=== PATIENT | female | born 1980 | race African-American/Black ===

== ENCOUNTER 2016-09-18 10:34 | Emergency (ER) | payer SELFPAY ==
[2016-09-18] MEDS ORDERED: ASPIRIN 81 MG TABLET, CHEWABLE PO ONE (11:29)
--- NOTE | 2016-09-18 11:31 | ER Document Report ---
[id number] Patient TRAVEL OUTSIDE OF THE [place] IN LAST 30 DAYS: No <LUIS ESCALONA - Last Filed: 09/18/16 11:25> <LISBETH VARGAS - Last Filed: 09/26/16 12:22> - General Chief Complaint: Chest Pain Stated Complaint: CHEST PAIN Notes: Patient is complaining of anxiety, "uneasy" feeling that started this morning with associated sharp mid-sternal intermittent chest pain for the past 5 hours. She rates her pain at 2 out of 5 this morning, it increased to 4 out of 5 at work and it is still 3-4 out of 5 now. Movement makes the pain worse. The chest pain is associated with SOB but denies any diaphoresis, nausea, vomiting with the pain. She has had this pain in the past several years ago. She took tylenol this morning which has not helped. She has not had any aspirin today. PMHx significant for HTN but no DM. FMHx significant for CAD, HTN, DM. Smoker but no alcohol or drug use. (LUIS ESCALONA) - Related Data Allergies/Adverse Reactions: No Known Allergies Allergy (Verified 09/18/16 10:53) Past Medical History - Past Medical History Cardiac Medical History: Denies: Hx Coronary Artery Disease, Hx Heart Attack, Hx Hypertension, Hx Pulmonary Embolism, Hx Heart Murmur Pulmonary Medical History: Denies: Hx Asthma, Hx Bronchitis, Hx COPD, Hx Pneumonia, Hx Sleep Apnea, Hx Tuberculosis Neurological Medical History: Denies: Hx Cerebrovascular Accident, Hx Seizures Endocrine Medical History: Denies: Hx Hyperthyroidism, Hx Hypothyroidism Renal/ Medical History: Denies: Hx Kidney Stones, Hx Ovarian Cysts, Hx Pelvic Inflammatory Disease Malignancy Medical History: Denies: Hx Breast Cancer, Hx Cervical Cancer, Hx Ovarian Cancer GI Medical History: Denies: Hx Gastroesophageal Reflux Disease, Hx Hiatal Hernia , Hx Ulcer Musculoskeltal Medical History: Denies Hx Arthritis, Denies Hx Fibromyalgia Psychiatric Medical History: Denies: Hx Bipolar Disorder, Hx Depression, Hx Post Traumatic Stress Disorder , Hx Schizophrenia Traumatic Medical History: Denies: Hx Fractures Infectious Medical History: Denies: Hx HIV Past Surgical History: Reports: Hx Breast Surgery - breast reduction, Hx Section - x3 - Immunizations Hx Diphtheria, Pertussis, Tetanus Vaccination: Yes <LUIS ESCALONA - Last Filed: 09/18/16 11:25> Physical Exam <LUIS ESCALONA - Last Filed: 09/18/16 11:25> <LISBETH VARGAS - Last Filed: 09/26/16 12:22> - Vital signs Vitals: Temp Pulse Resp BP Pulse Ox 98.4 F 90 18 137/92 H 100 09/18/16 10:43 09/18/16 10:43 09/18/16 10:43 09/18/16 10:43 09/18/16 10:43 (LUIS ESCALONA) (LISBETH VARGAS) - Notes Notes: General: well-appearing, non-toxic, no respiratory distress CV: RRR (LUIS ESCALONA) Course <LUIS ESCALONA - Last Filed: 09/18/16 11:25> - Laboratory Result Diagrams: 09/18/16 12:59 09/18/16 12:59 <LISBETH VARGAS - Last Filed: 09/26/16 12:22> - Re-evaluation Re-evalutation: 09/18/16 11:32 Patient seen and examined. EKG done. Given 324 mg PO ASA, ordered labs. (LUIS ESCALONA) - Vital Signs Vital signs: Temp Pulse Resp BP Pulse Ox 97.6 F 82 20 123/72 100 09/18/16 14:01 09/18/16 14:01 09/18/16 14:01 09/18/16 14:01 09/18/16 14:01 (LUIS ESCALONA) (LISBETH VARGAS) - Laboratory Laboratory results interpreted by me: 09/18/16 09/18/16 09/18/16 12:20 12:59 12:59 RDW 15.0 H Chloride 108 H Est GFR (Non-Af Amer) 59 L Glucose 67 L Ur Leukocyte Esterase TRACE H Urine Ascorbic Acid 40 H (LISBETH VARGAS) Doctor's Discharge <LUIS ESCALONA - Last Filed: 09/18/16 11:25> <LISBETH VARGAS - Last Filed: 09/26/16 12:22> - Discharge Clinical Impression: Chest pain of uncertain etiology Condition: Stable Disposition: HOME, SELF-CARE Instructions: Chest Pain of Unclear Cause ([facility]) Additional Instructions: rest, continue current meds, start one aspirin/day, return if worse Referrals: GORGE LUGO MD [ACTIVE STAFF] - Follow up as needed
--- NOTE | 2016-09-18 12:20 | EKG REPORT ---
SEVERITY:- NORMAL ECG - SINUS RHYTHM : Confirmed by: Carlyn Bender 18-Sep-2016 12:20:08
[2016-09-18 12:57] LABS: APPEARANCE,URINE SLIGHTLY-CLOUDY; BILIRUBIN,URINE NEGATIVE (NEGATIVE); GLUCOSE, URINE NEGATIVE (NEGATIVE); KETONES,URINE NEGATIVE (NEGATIVE); LEUKOCYTE ESTERASE,URINE TRACE (NEGATIVE); NITRITE,URINE NEGATIVE (NEGATIVE); PROTEIN,URINE NEGATIVE (NEGATIVE); URINE SPECIFIC GRAVITY 1.032; UROBILINOGEN,URINE NEGATIVE mg/dL (<2.0)
--- NOTE | 2016-09-18 13:00 | ER Document Report ---
[id number] Time seen by provider: 12:56 Mode of Arrival: Ambulatory Information source: Patient TRAVEL OUTSIDE OF THE [place] IN LAST 30 DAYS: No - HPI Patient complains to provider of: Chest pain - pt states she had a panic attack this am and had a brief episode of CP. She denies SOB, diaphoresis, N,V. She feels much better now. - Related Data Allergies/Adverse Reactions: No Known Allergies Allergy (Verified 09/18/16 10:53) Past Medical History - General Information source: Patient - Social History Smoking Status: Current Every Day Smoker Cigarette use (# per day): Yes Chew tobacco use (# tins/day): No Smoking Education Provided: Yes Family History: DM, Hyperlipidemia, Hypertension - Past Medical History Cardiac Medical History: Denies: Hx Coronary Artery Disease, Hx Heart Attack, Hx Hypertension, Hx Pulmonary Embolism, Hx Heart Murmur Pulmonary Medical History: Denies: Hx Asthma, Hx Bronchitis, Hx COPD, Hx Pneumonia, Hx Sleep Apnea, Hx Tuberculosis Neurological Medical History: Denies: Hx Cerebrovascular Accident, Hx Seizures Endocrine Medical History: Denies: Hx Hyperthyroidism, Hx Hypothyroidism Renal/ Medical History: Denies: Hx Kidney Stones, Hx Ovarian Cysts, Hx Pelvic Inflammatory Disease Malignancy Medical History: Denies: Hx Breast Cancer, Hx Cervical Cancer, Hx Ovarian Cancer GI Medical History: Denies: Hx Gastroesophageal Reflux Disease, Hx Hiatal Hernia , Hx Ulcer Musculoskeltal Medical History: Denies Hx Arthritis, Denies Hx Fibromyalgia Psychiatric Medical History: Denies: Hx Bipolar Disorder, Hx Depression, Hx Post Traumatic Stress Disorder , Hx Schizophrenia Traumatic Medical History: Denies: Hx Fractures Infectious Medical History: Denies: Hx HIV Past Surgical History: Reports: Hx Breast Surgery - breast reduction, Hx Section - x3 - Immunizations Hx Diphtheria, Pertussis, Tetanus Vaccination: Yes Review of Systems - Review of Systems Constitutional: No symptoms reported EENT: No symptoms reported Cardiovascular: See HPI, Chest pain Respiratory: No symptoms reported Gastrointestinal: No symptoms reported Musculoskeletal: No symptoms reported Neurological/Psychological: No symptoms reported Physical Exam - Vital signs Vitals: Temp Pulse Resp BP Pulse Ox 98.4 F 90 18 137/92 H 100 09/18/16 10:43 09/18/16 10:43 09/18/16 10:43 09/18/16 10:43 09/18/16 10:43 - General General appearance: Appears well, Other - she is obese In distress: None - HEENT Pharynx: Normal Neck: Normal - Respiratory Respiratory status: No respiratory distress Chest status: Nontender Breath sounds: Normal - Cardiovascular Rhythm: Regular Heart sounds: Normal auscultation - Abdominal Inspection: Normal Distension: No distension Bowel sounds: Normal Tenderness: Nontender Organomegaly: No organomegaly - Extremities General upper extremity: Normal inspection General lower extremity: Normal inspection - Neurological Neuro grossly intact: Yes Cognition: Normal Orientation: AAOx4 Course - Vital Signs Vital signs: Temp Pulse Resp BP Pulse Ox 97.6 F 82 20 123/72 100 09/18/16 14:01 09/18/16 14:01 09/18/16 14:01 09/18/16 14:01 09/18/16 14:01 - Laboratory Result Diagrams: 09/18/16 12:59 09/18/16 12:59 Laboratory results interpreted by me: 09/18/16 09/18/16 09/18/16 12:20 12:59 12:59 RDW 15.0 H Chloride 108 H Est GFR (Non-Af Amer) 59 L Glucose 67 L Ur Leukocyte Esterase TRACE H Urine Ascorbic Acid 40 H - EKG Interpretation by Me EKG shows normal: Sinus rhythm Rate: Normal Rhythm: NSR - nsr without acute change Discharge - Discharge Clinical Impression: Chest pain of uncertain etiology Condition: Stable Disposition: HOME, SELF-CARE Instructions: Chest Pain of Unclear Cause ([facility]) Additional Instructions: rest, continue current meds, start one aspirin/day, return if worse Referrals: GORGE LUGO MD [ACTIVE STAFF] - Follow up as needed
[2016-09-18 13:10] LABS: ABSOLUTE BASOPHILS # (AUTO) 0.1 10^3/uL (0.0-0.2); ABSOLUTE EOSINOPHILS # (AUTO) 0.2 10^3/uL (0.0-0.6); ABSOLUTE LYMPHOCYTES (AUTO) 2.2 10^3/uL (0.5-4.7); ABSOLUTE MONOCYTES (AUTO) 0.5 10^3/uL (0.1-1.4); BASOPHILS % (AUTO) 0.6 % (0-2); HEMATOCRIT 36.9 % (36.0-47.0); HEMOGLOBIN 12.4 g/dL (12.0-15.5); HGB HCT DIFFERENCE 0.3; LYMPHOCYTES % (AUTO) 22.2 % (13-45); MEAN CORPUSCULAR HEMOGLOBIN 31.1 pg (27.0-33.4); MEAN CORPUSCULAR HGB CONC 33.8 g/dL (32.0-36.0); MEAN CORPUSCULAR VOLUME 92 fl (80-97); MONOCYTES % (AUTO) 4.6 % (3-13); SEGMENTED NEUTROPHILS % (AUTO) 70.6 % (42-78); WHITE BLOOD COUNT 9.9 10^3/uL (4.0-10.5)
[2016-09-18 13:12] LABS: URINE BARBITURATES SCREEN NEGATIVE; URINE METHADONE SCREEN NEGATIVE; URINE PHENCYCLIDINE SCREEN NEGATIVE
[2016-09-18 13:26] LABS: ALANINE AMINOTRANSFERASE 39 U/L (9-52); ALKALINE PHOSPHATASE 80 U/L (38-126); ANION GAP 13 (5-19); ASPARTATE AMINO TRANSFERASE 20 U/L (14-36); BILIRUBIN,TOTAL 0.3 mg/dL (0.2-1.3); BLOOD UREA NITROGEN 19 mg/dL (7-20); CALCIUM 9.3 mg/dL (8.4-10.2); CARBON DIOXIDE 23 mmol/L (22-30); CHLORIDE 108 mmol/L (98-107); CREATINE KINASE 134 U/L (30-135); CREATININE RESULT 1.06 mg/dL (0.52-1.25); GLUCOSE 67 mg/dL (75-110); POTASSIUM 3.7 mmol/L (3.6-5.0); SODIUM 144.1 mmol/L (137-145)
[2016-09-18 13:38] LABS: CREATINE KINASE MB 0.61 ng/mL (<4.55)
[2016-09-18 13:40] LABS: TROPONIN I < 0.012 ng/mL
[2016-09-18 14:02] VITALS: BP 123/72
== END 2016-09-18 14:15 | disposition home or self-care (01) ==
LOC: ER 10:34
DX: R07.9 Chest pain, unspecified (principal); F17.210 Nicotine dependence, cigarettes, uncomplicated
CPT/HCPCS: 93005; 99285; 36415; 82553; 82550; 85025; 81025; 80053; 81001; 84484; 71010; 93010; G0479; 80307

== ENCOUNTER 2017-03-22 10:02 | Emergency (ER) | payer SELFPAY ==
[2017-03-22] MEDS ORDERED: OXYCODONE-ACETAMINOPHEN 5-325 MG TABLET PO ONE (10:56)
[2017-03-22] MEDS ORDERED: BUPIVACAINE HCL 0.5 % INJ/PF 30 ML SDV INJ ONE (11:01)
--- NOTE | 2017-03-22 11:03 | ER Document Report ---
HPI - HPI Patient complains to provider of: dequan injury Onset: Just prior to arrival Onset/Duration: Sudden Quality of pain: Sharp Pain Level: 5 Context: Patient states that she tripped and fell injuring her left third finger. Patient injured her fingernail. Associated Symptoms: Other - Third finger injury Exacerbated by: Movement Relieved by: Denies Similar symptoms previously: No Recently seen / treated by doctor: No - ROS ROS below otherwise negative: Yes Systems Reviewed and Negative: Yes All other systems reviewed and negative - CONSTITUTIONAL Constitutional: DENIES: Fever - MUSCULOSKELETAL Musculoskeletal: REPORTS: Extremity pain - DERM Skin Problems: Laceration Past Medical History - General Information source: Patient - Social History Smoking Status: Current Every Day Smoker Frequency of alcohol use: None Drug Abuse: None Occupation: visual manager Lives with: Family Family History: DM, Hyperlipidemia, Hypertension - Medical History Medical History: Negative - Past Medical History Cardiac Medical History: Denies: Hx Coronary Artery Disease, Hx Heart Attack, Hx Hypertension, Hx Pulmonary Embolism, Hx Heart Murmur Pulmonary Medical History: Denies: Hx Asthma, Hx Bronchitis, Hx COPD, Hx Pneumonia, Hx Sleep Apnea, Hx Tuberculosis Neurological Medical History: Denies: Hx Cerebrovascular Accident, Hx Seizures Endocrine Medical History: Denies: Hx Hyperthyroidism, Hx Hypothyroidism Renal/ Medical History: Denies: Hx Kidney Stones, Hx Ovarian Cysts, Hx Pelvic Inflammatory Disease Malignancy Medical History: Denies: Hx Breast Cancer, Hx Cervical Cancer, Hx Ovarian Cancer GI Medical History: Denies: Hx Gastroesophageal Reflux Disease, Hx Hiatal Hernia , Hx Ulcer Musculoskeltal Medical History: Denies Hx Arthritis, Denies Hx Fibromyalgia Psychiatric Medical History: Denies: Hx Bipolar Disorder, Hx Depression, Hx Post Traumatic Stress Disorder , Hx Schizophrenia Traumatic Medical History: Denies: Hx Fractures Infectious Medical History: Denies: Hx HIV Past Surgical History: Reports: Hx Breast Surgery - breast reduction, Hx Section - x3 - Immunizations Hx Diphtheria, Pertussis, Tetanus Vaccination: Yes Vertical Provider Document - CONSTITUTIONAL Agree With Documented VS: Yes Exam Limitations: No Limitations General Appearance: WD/WN, No Apparent Distress - INFECTION CONTROL TRAVEL OUTSIDE OF THE [place] IN LAST 30 DAYS: No - HEENT HEENT: Atraumatic, Normocephalic - NECK Neck: Normal Inspection - RESPIRATORY Respiratory: No Respiratory Distress O2 Sat by Pulse Oximetry: 100 - CARDIOVASCULAR Pulses: Normal: Radial - MUSCULOSKELETAL/EXTREMETIES Musculoskeletal/Extremeties: MAEW, Tender - Generalized the left hand tenderness. Patient with laceration to distal tip of left third finger involving nail plate. No obvious tendon deficit, No Edema. negative: Eccymosis - NEURO Level of Consciousness: Awake, Alert, Appropriate Motor/Sensory: No Motor Deficit - DERM Integumentary: Warm, Dry, Laceration - left 3rd finger Course - Vital Signs Vital signs: Temp Pulse Resp BP Pulse Ox 98.0 F 20 131/84 H 100 03/22/17 10:20 03/22/17 10:20 03/22/17 10:20 03/22/17 10:20 - Diagnostic Test Radiology reviewed: Image reviewed, Reports reviewed Procedures - Immobilization Left 3rd digit Pre-Proc Neuro Vasc Exam: Normal Immobilizer type: Finger splint (Static) Performed by: PCT Post-Proc Neuro Vasc Exam: Normal Alignment checked and good: Yes - Laceration/Wound Repair Left 3rd digit Wound length (cm): 2 Wound's Depth, Shape: Irregular Laceration pre-procedure: Other - chlorhexadine Anesthetic type: 0.5% Bupivacaine Wound explored: Clean Wound Repaired With: Sutures Suture Size/Type: 5:0, Nylon Number of Sutures: 5 Layer Closure?: No Post-procedure wound care: Sterile dressing applied, Splint applied Post-procedure NV exam normal: Yes Complications: No Discharge - Discharge Clinical Impression: Finger laceration Qualifiers: Encounter type: initial encounter Finger: middle finger Damage to nail status: with damage Foreign body presence: without foreign body Laterality: left Qualified Code(s): S61.313A - Laceration without foreign body of left middle finger with damage to nail, initial encounter Condition: Stable Disposition: HOME, SELF-CARE Instructions: Prophylactic Antibiotic ([facility]), Laceration Care ([facility]), Oral Narcotic Medication ([facility]), Temporary Splint ([facility]) Additional Instructions: Return immediately for any new or worsening symptoms Followup with your primary care provider, call tomorrow to make a followup appointment Suture removal in 8 days Prescriptions: Cephalexin Monohydrate [Keflex 500 mg Capsule] 500 mg PO Q6H 5 Days Hydrocodone/Acetaminophen [[place] 5-325 Tablet] 1 each PO Q4 PRN #15 tablet PRN Reason: Referrals: SARAI BASS DO [ACTIVE STAFF] - Follow up as needed
--- NOTE | 2017-03-22 11:35 | RADIOLOGY REPORT (SQ) ---
EXAM DESCRIPTION: HAND LEFT 3 VIEWS COMPLETED DATE/TIME: 03/22/2017 11:17 am REASON FOR STUDY: fall, left hand pain, left 3 finger injury COMPARISON: None. EXAM PARAMETERS: NUMBER OF VIEWS: Three views. TECHNIQUE: AP, lateral and oblique radiographic images acquired of the left hand. LIMITATIONS: None. FINDINGS: MINERALIZATION: Normal. BONES: No acute fracture or dislocation. No worrisome bone lesions. JOINTS: No effusions. SOFT TISSUES: No soft tissue swelling. No foreign body. OTHER: No other significant finding. IMPRESSION: NEGATIVE STUDY OF THE LEFT HAND. NO RADIOGRAPHIC EVIDENCE OF ACUTE INJURY. TECHNICAL DOCUMENTATION: JOB ID: [id number] [employer]- All Rights Reserved
[2017-03-22] MEDS ORDERED: CEPHALEXIN 500 MG CAPSULE PO ONE (12:43)
[2017-03-22 13:11] VITALS: BP 116/81
== END 2017-03-22 13:11 | disposition home or self-care (01) ==
LOC: ER 10:02
PROC: 0HQGXZZ Repair Left Hand Skin, External Approach (ICD-10-PCS; principal; 2017-03-22)
DX: S61.313A Laceration without foreign body of left middle finger with damage to nail, initial encounter (principal); W01.0XXA Fall on same level from slipping, tripping and stumbling without subsequent striking against object, initial encounter; F17.200 Nicotine dependence, unspecified, uncomplicated
CPT/HCPCS: 99283

== ENCOUNTER 2017-12-30 21:58 | Emergency (ER) | payer SELFPAY ==
[2017-12-30] MEDS ORDERED: ONDANSETRON HCL INJ/PF 4 MG/2 ML SDV IV ONE (22:22)
[2017-12-30] MEDS ORDERED: NORMAL SALINE 1000 ML 1,000 ML IV ONE (22:22)
[2017-12-30 23:28] LABS: ABSOLUTE EOSINOPHILS # (AUTO) 0.1 10^3/uL (0.0-0.6); ABSOLUTE LYMPHOCYTES (AUTO) 1.8 10^3/uL (0.5-4.7); ABSOLUTE MONOCYTES (AUTO) 0.3 10^3/uL (0.1-1.4); BASOPHILS % (AUTO) 0.4 % (0-2); EOSINOPHILS % (AUTO) 1.7 % (0-6); HEMATOCRIT 40.1 % (36.0-47.0); HEMOGLOBIN 13.5 g/dL (12.0-15.5); LYMPHOCYTES % (AUTO) 24.8 % (13-45); MEAN CORPUSCULAR HEMOGLOBIN 31.4 pg (27.0-33.4); MEAN CORPUSCULAR HGB CONC 33.6 g/dL (32.0-36.0); MEAN CORPUSCULAR VOLUME 94 fl (80-97); PLATELET COUNT 276 10^3/uL (150-450); RED BLOOD COUNT 4.29 10^6/uL (3.72-5.28); RED CELL DISTRIBUTION WIDTH 13.9 % (11.5-14.0); SEGMENTED NEUTROPHILS % (AUTO) 69.1 % (42-78); TOTAL CELLS COUNTED % (AUTO) 100 %; WHITE BLOOD COUNT 7.2 10^3/uL (4.0-10.5)
[2017-12-30 23:44] LABS: APPEARANCE,URINE CLEAR; BILIRUBIN,URINE NEGATIVE (NEGATIVE); COLOR,URINE YELLOW; GLUCOSE, URINE NEGATIVE (NEGATIVE); KETONES,URINE NEGATIVE (NEGATIVE); LEUKOCYTE ESTERASE,URINE NEGATIVE (NEGATIVE); NITRITE,URINE NEGATIVE (NEGATIVE); PROTEIN,URINE NEGATIVE (NEGATIVE); URINE SPECIFIC GRAVITY 1.032
[2017-12-31 00:08] LABS: ALANINE AMINOTRANSFERASE 26 U/L (9-52); ALBUMIN 3.7 g/dL (3.5-5.0); ALKALINE PHOSPHATASE 80 U/L (38-126); ANION GAP 9 (5-19); ASPARTATE AMINO TRANSFERASE 14 U/L (14-36); BILIRUBIN,DIRECT 0.1 mg/dL (0.0-0.4); BILIRUBIN,TOTAL 0.2 mg/dL (0.2-1.3); BLOOD UREA NITROGEN 15 mg/dL (7-20); CALCIUM 9.5 mg/dL (8.4-10.2); CARBON DIOXIDE 30 mmol/L (22-30); CHLORIDE 105 mmol/L (98-107); GLUCOSE 93 mg/dL (75-110); LIPASE 52.9 U/L (23-300); POTASSIUM 3.7 mmol/L (3.6-5.0); SODIUM 143.6 mmol/L (137-145); TOTAL PROTEIN 6.4 g/dL (6.3-8.2)
[2017-12-31] MEDS ORDERED: KETOROLAC TROMETHAMINE INJ/PF 30 MG/1 ML SDV IV ONE (00:09)
[2017-12-31] MEDS ORDERED: ACETAMINOPHEN 325 MG TABLET PO ONE (00:10)
[2017-12-31] MEDS ORDERED: LIDOCAINE 5% (700 MG) TRANSDERMAL ADH..PATCH TP ONE (00:10)
--- NOTE | 2017-12-31 00:15 | ER Document Report ---
ED General - General Chief Complaint: Abdominal Cramping Stated Complaint: BACK PAIN Time Seen by Provider: 12/30/17 22:21 Notes: Patient is a 37-year-old female without past medical history, no prior surgical history who presents with 1 week of left mid low back pain wrapping around to the left lower abdomen. She describes this as a throbbing, aching pain that is intermittent in nature. Pain is worsened by movement, coughing, and lying on the affected area. Pain has been improved when the patient has used naproxen at home. She is uncertain what triggers the pain triggered this episode of pain and denies any history of similar symptoms in the past. She has not seen her primary doctor regarding today's concerns. She denies any dysuria, hematuria, diarrhea, vomiting, chest pain or shortness of breath. She states that she has been intermittently nauseated but has been able to tolerate intake without difficulty. No history of DVT or pulmonary embolus. No use of estrogen. Nothing is new or different about the pain today that prompted to come to the emergency department. TRAVEL OUTSIDE OF THE [place] IN LAST 30 DAYS: No - Related Data Allergies/Adverse Reactions: No Known Allergies Allergy (Verified 03/22/17 10:13) Past Medical History - General Information source: Patient - Social History Smoking Status: Never Smoker Frequency of alcohol use: None Drug Abuse: None Lives with: Family Family History: DM, Hyperlipidemia, Hypertension - Past Medical History Cardiac Medical History: Denies: Hx Coronary Artery Disease, Hx Heart Attack, Hx Hypertension, Hx Pulmonary Embolism, Hx Heart Murmur Pulmonary Medical History: Denies: Hx Asthma, Hx Bronchitis, Hx COPD, Hx Pneumonia, Hx Sleep Apnea, Hx Tuberculosis Neurological Medical History: Denies: Hx Cerebrovascular Accident, Hx Seizures Endocrine Medical History: Denies: Hx Hyperthyroidism, Hx Hypothyroidism Renal/ Medical History: Denies: Hx Kidney Stones, Hx Ovarian Cysts, Hx Pelvic Inflammatory Disease Malignancy Medical History: Denies: Hx Breast Cancer, Hx Cervical Cancer, Hx Ovarian Cancer GI Medical History: Denies: Hx Gastroesophageal Reflux Disease, Hx Hiatal Hernia , Hx Ulcer Musculoskeltal Medical History: Denies Hx Arthritis, Denies Hx Fibromyalgia Psychiatric Medical History: Denies: Hx Bipolar Disorder, Hx Depression, Hx Post Traumatic Stress Disorder , Hx Schizophrenia Traumatic Medical History: Denies: Hx Fractures Infectious Medical History: Denies: Hx HIV Past Surgical History: Reports: Hx Breast Surgery - breast reduction, Hx Section - x3 - Immunizations Hx Diphtheria, Pertussis, Tetanus Vaccination: Yes Review of Systems - Review of Systems Notes: Constitutional: Negative for fever. HENT: Negative for sore throat. Eyes: Negative for visual changes. Cardiovascular: Negative for chest pain. Respiratory: Negative for shortness of breath. Gastrointestinal: positive for abdominal pain and nausea Genitourinary: Negative for dysuria. Musculoskeletal: Positive for mid back pain on the left side Skin: Negative for rash. Neurological: Negative for headaches, weakness or numbness. 10 point ROS negative except as marked above and in HPI. Physical Exam - Vital signs Interpretation: Normal Notes: PHYSICAL EXAMINATION: GENERAL: Well-appearing, well-nourished and in no acute distress. HEAD: Atraumatic, normocephalic. EYES: Pupils equal round and reactive to light, extraocular movements intact, sclera anicteric, conjunctiva are normal. ENT: nares patent, oropharynx clear without exudates. Moist mucous membranes. NECK: Normal range of motion, supple without lymphadenopathy LUNGS: Breath sounds clear to auscultation bilaterally and equal. No wheezes rales or rhonchi. HEART: Regular rate and rhythm without murmurs ABDOMEN: Soft, nontender, normoactive bowel sounds. No guarding, no rebound. No masses appreciated. Back: Diffuse tenderness of the paraspinous muscles of the lower thoracic through upper perilumbar region. No swelling. No midline spinal tenderness, step-offs or deformities. EXTREMITIES: Normal range of motion, no pitting or edema. No cyanosis. NEUROLOGICAL: No focal neurological deficits. Moves all extremities spontaneously and on command. PSYCH: Normal mood, normal affect. SKIN: Warm, Dry, normal turgor, no rashes or lesions noted. Course - Re-evaluation Re-evalutation: 12/31/17 00:10 Patient presents with 1 week of left-sided flank tenderness involving the oblique muscle on the left as well as the lower abdomen on the left. She is otherwise very well in appearance. Pain appears to be likely musculoskeletal in origin as it is exacerbated by movement, coughing and pushing on the area. She reports that she has taken naproxen at home with almost complete resolution of the pain but worries that the pain persists. Urinalysis is clear without evidence of nephrolithiasis or pyelonephritis. She has no infectious or constitutional symptoms to suggest an acute diverticulitis or infectious colitis. She has no right-sided upper abdominal or lower abdominal pain to suggest an acute appendicitis or biliary colic. I have had a risks and benefits conversation with the patient regarding CT imaging of the abdomen and pelvis at this time. 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 We discussed the risks of radiation to the abdomen and pelvis. We discussed the alternative of close follow-up with their primary care physician for a recheck of the abdomen within 24 hours as well as reasons to return to the emergency department. After this conversation, the patient has elected to avoid CT imaging of the abdomen and pelvis at this time. They have capacity. They have verbalized the importance of close follow-up as well as reasons to return to the emergency department including worsening abdominal pain, fever, persistent vomiting, or any other symptoms that are worrisome to them. - Laboratory Result Diagrams: 12/30/17 23:05 12/30/17 23:40 Laboratory results interpreted by me: 12/30/17 23:05 Urine Urobilinogen 2.0 H Discharge - Discharge Clinical Impression: Left flank pain, Left sided abdominal pain, Nausea Condition: Good Disposition: HOME, SELF-CARE Additional Instructions: You have been seen in the Emergency Department (ED) for abdominal pain. Your evaluation did not identify a clear cause of your symptoms but was generally reassuring. For your pain: Take ibuprofen 600 mg and acetaminophen 1000 mg every 6 hours together as needed for pain. Please follow up with your doctor as soon as possible regarding today's emergent visit and the symptoms that are bothering you. Return to the ED if your abdominal pain worsens or fails to improve, you develop bloody vomiting, bloody diarrhea, you are unable to tolerate fluids due to vomiting, fever greater than 101, or other symptoms that concern you. Forms: Return to Work
[2017-12-31 01:48] VITALS: BP 135/75
== END 2017-12-31 01:20 | disposition home or self-care (01) ==
LOC: ER 21:58
DX: R10.32 Left lower quadrant pain (principal); R10.9 Unspecified abdominal pain; R11.0 Nausea; M54.9 Dorsalgia, unspecified; M54.5 Low back pain; M54.6 Pain in thoracic spine; Z79.899 Other long term (current) drug therapy
CPT/HCPCS: 99283; 96361; 96374; 96375; 36415; 83690; 84703; 85025; 80053; 81001; J1885; J2405; J7030

== ENCOUNTER 2018-08-02 15:11 | Emergency (ER) | payer SELFPAY ==
[2018-08-02 15:24] VITALS: BP 134/79
--- NOTE | 2018-08-02 15:36 | ER Document Report ---
HPI - HPI Patient complains to provider of: toothpain Time Seen by Provider: 08/02/18 15:34 Onset: Last week Onset/Duration: Persistent Quality of pain: Achy, Throbbing Severity: Severe Pain Level: 4 Context: Patient presents to the emergency department with complaints of left-sided dental pain that shoots into her ear and sinuses. She denies fever vomiting diarrhea. Patient reports she does not have a dentist. She reports pain when she drinks something cold. Patient reports she is having trouble sleeping because of the pain. Associated Symptoms: None Exacerbated by: Other - cold sensitivity Relieved by: Denies Similar symptoms previously: Yes Recently seen / treated by doctor: No - REPRODUCTIVE Reproductive: REPORTS: : Past Medical History - General Information source: Patient Last Menstrual Period: current - Social History Smoking Status: Current Every Day Smoker Cigarette use (# per day): Yes Frequency of alcohol use: None Drug Abuse: None Lives with: Family Family History: DM, Hyperlipidemia, Hypertension Patient has suicidal ideation: No Patient has homicidal ideation: No - Past Medical History Cardiac Medical History: Denies: Hx Coronary Artery Disease, Hx Heart Attack, Hx Hypertension, Hx Pulmonary Embolism, Hx Heart Murmur Pulmonary Medical History: Denies: Hx Asthma, Hx Bronchitis, Hx COPD, Hx Pneumonia, Hx Sleep Apnea, Hx Tuberculosis Neurological Medical History: Denies: Hx Cerebrovascular Accident, Hx Seizures Endocrine Medical History: Denies: Hx Hyperthyroidism, Hx Hypothyroidism Renal/ Medical History: Denies: Hx Kidney Stones, Hx Ovarian Cysts, Hx Peritoneal Dialysis, Hx Pelvic Inflammatory Disease Malignancy Medical History: Denies: Hx Breast Cancer, Hx Cervical Cancer, Hx Ovarian Cancer GI Medical History: Denies: Hx Gastroesophageal Reflux Disease, Hx Hiatal Hernia , Hx Ulcer Musculoskeletal Medical History: Denies Hx Arthritis, Denies Hx Fibromyalgia Psychiatric Medical History: Denies: Hx Bipolar Disorder, Hx Depression, Hx Post Traumatic Stress Disorder , Hx Schizophrenia Traumatic Medical History: Denies: Hx Fractures Infectious Medical History: Denies: Hx HIV Past Surgical History: Reports: Hx Breast Surgery - breast reduction, Hx Section - x3 - Immunizations Hx Diphtheria, Pertussis, Tetanus Vaccination: Yes Vertical Provider Document - CONSTITUTIONAL Agree With Documented VS: Yes Exam Limitations: No Limitations General Appearance: WD/WN, No Apparent Distress - INFECTION CONTROL TRAVEL OUTSIDE OF THE [place] IN LAST 30 DAYS: No - HEENT HEENT: Atraumatic, Normocephalic. negative: Conjuctival Injection, Pharyngeal Exudate, Pharyngeal Erythema Mouth Diagram: 1 - Multiple dental cavities noted no erythema no swelling no pustules opens mouth wide good clear voice no ludwiqs - NECK Neck: Normal Inspection, Supple. negative: Lymphadenopathy-Left, Lymphadenopathy-Right - RESPIRATORY Respiratory: Breath Sounds Normal, No Respiratory Distress - CARDIOVASCULAR Cardiovascular: Regular Rate - MUSCULOSKELETAL/EXTREMETIES Musculoskeletal/Extremeties: MAEW, FROM - NEURO Level of Consciousness: Awake, Alert, Appropriate Motor/Sensory: No Motor Deficit - DERM Integumentary: Warm, Dry Course - Re-evaluation Re-evalutation: 08/02/18 16:27 Patient reported relief of pain after Tessalon Perles. Patient was provided with written resources for dental. Patient was instructed on penicillin. She verbalized understanding to all instructions. Patient was tearful, thankful for help. Dictation of this chart was performed using voice recognition software; therefore, there may be some unintended grammatical errors. . - Vital Signs Vital signs: Temp Pulse Resp BP Pulse Ox 97.9 F 94 16 134/79 H 100 08/02/18 15:23 08/02/18 15:23 08/02/18 15:23 08/02/18 15:23 08/02/18 15:23 Discharge - Discharge Clinical Impression: Pain, dental Condition: Stable Disposition: HOME, SELF-CARE Instructions: [facility], Oral Narcotic Medication ([facility]), Penicillin V K ([facility]), Tessalon Perles ([facility]), Toothache ([facility]) Additional Instructions: *You have been evaluated for dental pain *Take medications as prescribed *Follow up with dentist within one week *Return to ED for worsening condition, changes, needs Monitor your blood pressure. Your blood pressure was elevated today. This may be because you were anxious, in pain or because you need medication. It is important to follow up with your primary care provider for full evaluation. Prescriptions: Benzonatate [Tessalon Perles 100 mg Capsule] 100 mg PO ASDIR PRN #40 capsule PRN Reason: Penicillin V Potassium [Penicillin Vk 500 mg Tablet] 500 mg PO BID #20 tablet Forms: Elevated Blood Pressure
[2018-08-02] MEDS ORDERED: BENZONATATE 100 MG CAPSULE PO ONE (15:56)
[2018-08-02] MEDS ORDERED: PENICILLIN V POTASSIUM 500 MG TABLET PO ONE (15:56)
[2018-08-02] MEDS ORDERED: KETOROLAC TROMETHAMINE 60 MG/2 ML SDV IM ONE (15:56)
[2018-08-02] MEDS ORDERED: HYDROCODONE/ACETAMINOPHEN 5-325 MG (6 TAB/ER DISP) PO PRN (16:13)
== END 2018-08-02 16:34 | disposition home or self-care (01) ==
LOC: ER 15:11
DX: K02.9 Dental caries, unspecified (principal); K08.89 Other specified disorders of teeth and supporting structures; F17.210 Nicotine dependence, cigarettes, uncomplicated
CPT/HCPCS: 99283; 96372; J1885

== ENCOUNTER 2019-10-27 08:29 | Emergency (ER) | payer SELFPAY ==
--- NOTE | 2019-10-27 09:28 | ER Document Report ---
ED General - General Chief Complaint: Pain All Over Stated Complaint: BODY ACHES,COUGH Time Seen by Provider: 10/27/19 09:10 Notes: HPI: 39-year-old female who presents today with around 3 days of some cough, body aches, and runny nose with congestion. She denies any fevers, vomiting, or diarrhea. She states all 3 children have had similar symptoms over the last week. She denies to me any sore throat or chest discomfort. ROS: See HPI All other review of systems reviewed and otherwise negative Reviewed vital signs and nursing note as charted by RN. PHYSICAL EXAM: CONSTITUTIONAL: Alert and oriented and responds appropriately to questions. Well-appearing; well-nourished HEAD: Normocephalic; atraumatic EYES: PERRL; Conjunctivae clear, sclerae non-icteric ENT: Normal nose; bilateral nonpurulent nasal rhinorrhea; moist mucous membranes; pharynx with mild posterior edema with no peritonsillar swelling with a midline nonswollen uvula NECK: Supple without meningismus; non-tender; no cervical lymphadenopathy, no masses CARD: Regular rate and rhythm; no murmurs; symmetric distal pulses RESP: Normal chest excursion without splinting or tachypnea; breath sounds clear and equal bilaterally; no wheezes, no rhonchi, no rales ABD/GI: Normal bowel sounds; non-distended; soft, non-tender BACK: The back appears normal and is non-tender to palpation EXT: Normal ROM in all joints; non-tender to palpation; no edema SKIN: No acute lesions noted NEURO: CN 2-12 intact; 5/5 bilateral upper and lower extremity strength with sensation intact to light touch PSYCH: The patient's mood and manner are appropriate. Grooming and personal hygiene are appropriate. TRAVEL OUTSIDE OF THE [place] IN LAST 30 DAYS: No - Related Data Allergies/Adverse Reactions: No Known Allergies Allergy (Verified 03/22/17 10:13) Past Medical History - Social History Smoking Status: Unknown if Ever Smoked Family History: DM, Hyperlipidemia, Hypertension Patient has suicidal ideation: No Patient has homicidal ideation: No - Past Medical History Cardiac Medical History: Denies: Hx Coronary Artery Disease, Hx Heart Attack, Hx Hypertension, Hx Pulmonary Embolism, Hx Heart Murmur Pulmonary Medical History: Denies: Hx Asthma, Hx Bronchitis, Hx COPD, Hx Pneumonia, Hx Sleep Apnea, Hx Tuberculosis Neurological Medical History: Denies: Hx Cerebrovascular Accident, Hx Seizures Endocrine Medical History: Denies: Hx Hyperthyroidism, Hx Hypothyroidism Renal/ Medical History: Denies: Hx Kidney Stones, Hx Ovarian Cysts, Hx Peritoneal Dialysis, Hx Pelvic Inflammatory Disease Malignancy Medical History: Denies: Hx Breast Cancer, Hx Cervical Cancer, Hx Ovarian Cancer GI Medical History: Denies: Hx Gastroesophageal Reflux Disease, Hx Hiatal Hernia, Hx Ulcer Musculoskeletal Medical History: Denies Hx Arthritis, Denies Hx Fibromyalgia Psychiatric Medical History: Denies: Hx Bipolar Disorder, Hx Depression, Hx Post Traumatic Stress Disorder, Hx Schizophrenia Traumatic Medical History: Denies: Hx Fractures Infectious Medical History: Denies: Hx HIV Past Surgical History: Reports: Hx Breast Surgery - breast reduction, Hx Section - x3 - Immunizations Hx Diphtheria, Pertussis, Tetanus Vaccination: Yes Physical Exam - Vital signs Vitals: Temp Pulse Resp BP Pulse Ox 98.6 F 90 16 145/86 H 99 10/27/19 08:45 10/27/19 08:45 10/27/19 08:45 10/27/19 08:45 10/27/19 08:45 Course - Re-evaluation Re-evalutation: 10/27/19 09:30 Given the above history and physical examination in this very well-appearing patient with clear lungs bilaterally, with sats as recorded, with 3 sick siblings at home with similar symptoms over this last week, with some body aches, with a high incidence of influenza, I do believe that the patient most likely has the flu. The testing that we do for flu he was only 50% sensitive when the patient has the disease. The test was ordered in triage. 10/27/19 10:22 Patient still looks excellent. No obvious bacterial infection on the strep examination. Lungs are still clear to auscultation bilaterally. Multiple family members have similar symptoms. Patient will be discharged home with strict return precautions and follow-up with the primary care physician - Vital Signs Vital signs: Temp Pulse Resp BP Pulse Ox 98.6 F 90 16 145/86 H 99 10/27/19 08:45 10/27/19 08:45 10/27/19 08:45 10/27/19 08:45 10/27/19 08:45 Discharge - Discharge Clinical Impression: Nasal congestion, Cough Condition: Good Disposition: HOME, SELF-CARE Additional Instructions: Come back immediately for any worsening cough, fevers, calf pain or leg swelling, or any other acute problems. Please take ibuprofen every 6 hours as well as Tylenol for the pain. Follow-up with your primary care physician for reassessment.
[2019-10-27] MEDS ORDERED: IBUPROFEN 600 MG TABLET PO ONE (09:31)
[2019-10-27 09:45] LABS: A TYPE INFLUENZA AG NEGATIVE (NEGATIVE); B INFLUENZA AG NEGATIVE (NEGATIVE)
[2019-10-27 10:42] VITALS: BP 133/89
== END 2019-10-27 10:42 | disposition home or self-care (01) ==
LOC: ER 08:29
DX: R09.81 Nasal congestion (principal); R05 Cough; M79.10 Myalgia, unspecified site
CPT/HCPCS: 87070; 87077; 87804; 87880

== ENCOUNTER 2020-05-20 11:51 | Emergency (ER) | payer SELFPAY ==
--- NOTE | 2020-05-20 12:49 | ER Document Report ---
ED Medical Screen (RME) - General Chief Complaint: Pelvic Pain Stated Complaint: PELVIC PAIN Time Seen by Provider: 05/20/20 12:40 Mode of Arrival: Ambulatory Information source: Patient Notes: Patient is a 39-year-old female presenting to the emergency department concern for foul-smelling drainage from her incision and also an area that has opened. Her was done 4 years ago. She denies any fever or chills. Patient has a large pannus, there is a small area of the incision that does have some drainage coming from it. There is also erythema and it is very tender with light palpation. I have greeted and performed a rapid initial assessment of this patient. A comprehensive ED assessment and evaluation of the patient, analysis of test results and completion of the medical decision making process will be conducted by additional ED providers. I have specifically instructed the patient or family members with the patient to immediately return to any nursing staff should anything change in the patient's condition or with their chief complaint. TRAVEL OUTSIDE OF THE [place] IN LAST 30 DAYS: No - Related Data Allergies/Adverse Reactions: No Known Allergies Allergy (Verified 03/22/17 10:13) Past Medical History - Social History Frequency of alcohol use: None Drug Abuse: Marijuana - Past Medical History Cardiac Medical History: Denies: Hx Coronary Artery Disease, Hx Heart Attack, Hx Hypertension, Hx Pulmonary Embolism, Hx Heart Murmur Pulmonary Medical History: Denies: Hx Asthma, Hx Bronchitis, Hx COPD, Hx Pneumonia, Hx Sleep Apnea, Hx Tuberculosis Neurological Medical History: Denies: Hx Cerebrovascular Accident, Hx Seizures Endocrine Medical History: Denies: Hx Hyperthyroidism, Hx Hypothyroidism Renal/ Medical History: Denies: Hx Kidney Stones, Hx Ovarian Cysts, Hx Peritoneal Dialysis, Hx Pelvic Inflammatory Disease Malignancy Medical History: Denies: Hx Breast Cancer, Hx Cervical Cancer, Hx Ovarian Cancer GI Medical History: Denies: Hx Gastroesophageal Reflux Disease, Hx Hiatal Hernia, Hx Ulcer Musculoskeltal Medical History: Denies Hx Arthritis, Denies Hx Fibromyalgia Psychiatric Medical History: Denies: Hx Bipolar Disorder, Hx Depression, Hx Post Traumatic Stress Disorder, Hx Schizophrenia Traumatic Medical History: Denies: Hx Fractures Infectious Medical History: Denies: Hx HIV Past Surgical History: Reports: Hx Breast Surgery - breast reduction, Hx Section - x3 - Immunizations Hx Diphtheria, Pertussis, Tetanus Vaccination: Yes Physical Exam - Vital signs Vitals: Temp Pulse Resp BP Pulse Ox 98.4 F 98 16 147/78 H 99 05/20/20 11:57 05/20/20 11:57 05/20/20 11:57 05/20/20 11:57 05/20/20 11:57 Course - Vital Signs Vital signs: Temp Pulse Resp BP Pulse Ox 98.4 F 98 16 147/78 H 99 05/20/20 11:57 05/20/20 11:57 05/20/20 11:57 05/20/20 11:57 05/20/20 11:57
[2020-05-20] MEDS ORDERED: OXYCODONE-ACETAMINOPHEN 5-325 MG TABLET PO ONE (13:13)
[2020-05-20 13:37] LABS: APPEARANCE,URINE CLOUDY; BILIRUBIN,URINE NEGATIVE (NEGATIVE); COLOR,URINE YELLOW; GLUCOSE, URINE NEGATIVE (NEGATIVE); KETONES,URINE NEGATIVE (NEGATIVE); PROTEIN,URINE 30 mg/dL (NEGATIVE); URINE SPECIFIC GRAVITY 1.029
--- NOTE | 2020-05-20 13:48 | ER Document Report ---
ED General - General Chief Complaint: Pelvic Pain Stated Complaint: PELVIC PAIN Time Seen by Provider: 05/20/20 12:40 Primary Care Provider: [facility] [Provider Group] - Follow up as needed Mode of Arrival: Ambulatory Notes: Patient presents with pain near her site in the anterior pubic region for several days associated with foul smell. There is no discharge. She has no urinary symptoms. She did miss a period. She said having intermittent irregular and heavy periods lately. She says that her scar 4 years ago seems to have dehisced and then she had repeat surgery and has had intermittent problems with it since then. She recently started exercising and running again and has had increasing pain in the area. No fevers. No urinary symptoms. TRAVEL OUTSIDE OF THE [place] IN LAST 30 DAYS: No - Related Data Allergies/Adverse Reactions: No Known Allergies Allergy (Verified 03/22/17 10:13) Past Medical History - General Information source: Patient - Social History Smoking Status: Current Every Day Smoker Frequency of alcohol use: None Drug Abuse: Marijuana Family History: DM, Hyperlipidemia, Hypertension - Past Medical History Cardiac Medical History: Denies: Hx Coronary Artery Disease, Hx Heart Attack, Hx Hypertension, Hx Pulmonary Embolism, Hx Heart Murmur Pulmonary Medical History: Denies: Hx Asthma, Hx Bronchitis, Hx COPD, Hx Pneumonia, Hx Sleep Apnea, Hx Tuberculosis Neurological Medical History: Denies: Hx Cerebrovascular Accident, Hx Seizures Endocrine Medical History: Denies: Hx Hyperthyroidism, Hx Hypothyroidism Renal/ Medical History: Denies: Hx Kidney Stones, Hx Ovarian Cysts, Hx Peritoneal Dialysis, Hx Pelvic Inflammatory Disease Malignancy Medical History: Denies: Hx Breast Cancer, Hx Cervical Cancer, Hx Ovarian Cancer GI Medical History: Denies: Hx Gastroesophageal Reflux Disease, Hx Hiatal Hernia, Hx Ulcer Musculoskeletal Medical History: Denies Hx Arthritis, Denies Hx Fibromyalgia Psychiatric Medical History: Denies: Hx Bipolar Disorder, Hx Depression, Hx Post Traumatic Stress Disorder, Hx Schizophrenia Traumatic Medical History: Denies: Hx Fractures Infectious Medical History: Denies: Hx HIV Past Surgical History: Reports: Hx Breast Surgery - breast reduction, Hx Section - x3 - Immunizations Hx Diphtheria, Pertussis, Tetanus Vaccination: Yes Review of Systems - Review of Systems Notes: REVIEW OF SYSTEMS GEN: Denies fever, chills, weight loss ENT: Denies sore throat, nasal discharge, ear pain EYES: Denies blurry vision, eye pain, discharge CV: Denies chest pain, palpitations, edema RESP: Denies cough, shortness of breath, wheezing GI: Lower abdominal pain MSK: Denies joint pain/swelling, edema, SKIN: Denies rash, skin lesions LYMPH: Denies swollen glands/lymph nodes NEURO: Denies headache, focal weakness or numbness, dizziness PSYCH: Denies depression, suicidal or homicidal ideation PHYSICAL EXAMINATION General: No acute distress, well-nourished Head: Atraumatic, normocephalic ENT: Mouth normal, oropharynx moist, no exudates or tonsillar enlargement Eyes: Conjunctiva normal, pupils equal, lids normal Neck: No JVD, supple, no guarding CVS: Normal rate, regular rhythm, no murmurs Resp: No resp distress, equal and normal breath sounds bilaterally GI: Nondistended, soft, no tenderness to palpation, no rebound or guarding pubic region: Old incision, with mild yeast panniculitis, 1 or 2 ingrown hairs with pustular heads less than 1 cm across and minimally tender. No other abdominal tenderness. Ext: No deformities, no edema, normal range of motion in upper and lower ext Back: No CVA or midline TTP Skin: No rash, warm Lymphatic: No lymphadeopathy noted Neuro: Awake, alert. Face symmetric. GCS 15. Physical Exam - Vital signs Vitals: Temp Pulse Resp BP Pulse Ox 98.4 F 98 16 147/78 H 99 05/20/20 11:57 05/20/20 11:57 05/20/20 11:57 05/20/20 11:57 05/20/20 11:57 Course - Re-evaluation Re-evalutation: 05/20/20 13:44 Patient presents with pubic area pain has an ingrown hair in the pubic region and some yeast folliculitis beneath her pannus. I do not see any cutaneous abscesses. I ultrasounded her and did not see any deep space abscess or fluid collection in the pelvic/abdominal wall and her uterus and bladder are normal. Her urine is contaminated without urinary tract symptoms I do not think she has a UTI. Would treat her for cellulitis/furuncle with oral antibiotic as well as nystatin powder for the yeast and refer her to women's health. I do not think she has PID or any other acute cause of lower abdominal pain. I have discussed with the patient there likely diagnosis, aftercare plan, follow-up plans and my usual and customary return precautions. They verbalized understanding of this. - Vital Signs Vital signs: Temp Pulse Resp BP Pulse Ox 98.4 F 98 16 147/78 H 99 05/20/20 11:57 05/20/20 11:57 05/20/20 11:57 05/20/20 11:57 05/20/20 11:57 - Laboratory Laboratory results interpreted by me: 05/20/20 13:19 Urine Protein 30 H Urine Urobilinogen 4.0 H Leukocyte Esterase Rfl LARGE H Procedures - Ultrasound/Bedside Ultrasound/Bedside Ultrasound: Normal - Pelvic transabdominal: Normal bladder no free fluid normal uterus with possible fibroid, endometrial stripe slightly thickened, ovaries not visualized. Discharge - Discharge Clinical Impression: Panniculitis, Pelvic pain Condition: Good Disposition: HOME, SELF-CARE Instructions: Antibiotic Therapy ([facility]), Pelvic Pain ([facility]) Prescriptions: Doxycycline Hyclate 100 mg PO BID #14 tablet.dr Gacría [Mycostatin Cream 15 gm] 1 applic TP BID #15 gm Referrals: [facility] [Provider Group] - Follow up as needed
[2020-05-20 14:47] VITALS: BP 138/94
== END 2020-05-20 14:46 | disposition home or self-care (01) ==
LOC: ER 11:51
DX: M79.3 Panniculitis, unspecified (principal); R10.2 Pelvic and perineal pain; R10.30 Lower abdominal pain, unspecified; F17.200 Nicotine dependence, unspecified, uncomplicated
CPT/HCPCS: 81001; 81025; 99284